=== PATIENT | male | born 1965 | race Caucasian/White ===

== ENCOUNTER → 2021-01-12 | Outpatient (CLI) | payer OTHER ==
[2021-01-12 13:10] LABS: HEMOGLOBIN 15.9 gm/dl (14.0-17.5); RED BLOOD COUNT 5.25 M/UL (4.20-5.50)
[2021-01-12 14:47] LABS: BUN/CREATININE RATIO 18 (0-10)
[2021-01-13 08:14] LABS: VITAMIN D, 25-HYDROXY 19.2 ng/mL (30.0-100.0)
[2021-01-16 09:13] LABS: TESTOSTERONE, SERUM 564 ng/dL (264-916)
== END ==
LOC: LAB 11:41
PROVIDERS: Physician Assistant Medical
DX: S09.90XA Unspecified injury of head, initial encounter (principal); R53.83 Other fatigue; E78.5 Hyperlipidemia, unspecified; E55.9 Vitamin D deficiency, unspecified; R73.9 Hyperglycemia, unspecified; E34.9 Endocrine disorder, unspecified; M25.50 Pain in unspecified joint
CPT/HCPCS: 36415; 70260; 80053; 80061; 82607; 83036; 84402; 84403; 84439; 84443; 85027; 85652; 86140